=== PATIENT | female | born 1980 | race Caucasian/White ===

== ENCOUNTER 2016-11-21 09:54 | Emergency (ER) | payer OTHER ==
[~2016-11-21] VITALS: Ht 157.5 cm; Wt 63.5 kg
[2016-11-21] MEDS ORDERED: MULT1TAB18 PO (10:10)
[2016-11-21] MEDS ORDERED: PEPT262T2 PO (10:10)
[2016-11-21] MEDS ORDERED: NS 1,000 ML IV ONE ×2 (11:00→12:30)
[2016-11-21] MEDS ORDERED: KETOROLAC 30 MG/ML VIAL (J1885) IV ONE (11:00)
[2016-11-21] MEDS ORDERED: ONDANSETRON 4MG/2ML VIAL (J2405) IV ONE (11:00)
[2016-11-21 11:29] LABS: BASO % 0.2 % (0.0-1.0); EOS # 0.3 K/mm3 (0.0-0.50); EOS % 2.2 % (0.0-3.0); LARGE UNSTAINED CELL # 0.1 K/mm3 (0.0-0.4); LARGE UNSTAINED CELL % 1.1 % (0.0-4.0); LYMPH % 16.4 % (24.0-44.0); MEAN CORPUSCULAR HEMOGLOBIN 34.8 pg (27.0-33.0); MEAN CORPUSCULAR HGB CONC 36.2 g/dl (32.0-36.5); MEAN CORPUSCULAR VOLUME 96.1 fl (80.0-96.0); MONO # 0.5 K/mm3 (0.0-0.8); MONO % 4.3 % (0.0-5.0); NEUTROPHILS # 9.1 K/mm3 (1.8-7.7); NEUTROPHILS % 75.8 % (36.0-66.0); PLATELET COUNT, AUTOMATED 332 k/mm3 (150-450); RED CELL DISTRIBUTION WIDTH 11.6 % (11.5-14.5)
--- NOTE | 2016-11-21 11:45 | REP ---
Clinical: Upper abdominal pain. Technique: Perkins scale ultrasound using curved array transducer. Findings: The liver and pancreas are normal in contour, size, and echogenicity without focal hepatic or pancreatic lesions identified. The gallbladder is normal without gallstones, wall thickening or pericholecystic fluid. No biliary ductal dilatation is appreciated, and the common bile duct measures 3.5 mm mm diameter. The right kidney is normal in reniform shape without hydronephrosis and measures 10.0 x 5.1 x 4.6 cm. No ascites. Visualized portions of the abdominal aorta normal. Impression: Normal right upper quadrant and gallbladder abdominal ultrasound. Signed by Elias Holcomb MD 11/21/2016 11:37 A
[2016-11-21 11:56] LABS: ALBUMIN 4.2 GM/DL (3.2-5.2); ALBUMIN/GLOBULIN RATIO 1.17 (1.00-1.93); ALKALINE PHOSPHATASE 56 U/L (45-117); ALT/SGPT 26 U/L (12-78); AMYLASE 74 U/L (25-115); ANION GAP 7 MEQ/L (8-16); AST/SGOT 14 U/L (15-37); BILIRUBIN,TOTAL 0.6 MG/DL (0.2-1.0); BLOOD UREA NITROGEN 14 MG/DL (7-18); CARBON DIOXIDE LEVEL 24 MEQ/L (21-32); CHLORIDE LEVEL 109 MEQ/L (98-107); CREATININE FOR GFR 0.84 MG/DL (0.55-1.02); GLOMERULAR FILTRATION RATE > 60.0 (>60); GLUCOSE, FASTING 87 MG/DL (70-105); SODIUM LEVEL 140 MEQ/L (136-145); TOTAL PROTEIN 7.8 GM/DL (6.4-8.2)
[2016-11-21] MEDS ORDERED: MORPHINE 4 MG/ML 1ML SYRINGE IV ONE (12:15)
[2016-11-21] MEDS ORDERED: ISOVUE-370 76% 100ML VIAL (Q9967) As Ordered ONE (12:23)
--- NOTE | 2016-11-21 13:04 | REP ---
Clinical: Left lower quadrant pain and diarrhea. Technique: Axial contrast enhanced images from the lung bases to the pubic symphysis using oral and 100 ml Isovue 370 intravenous contrast material coronal and sagittal re-formations. Findings: Mural thickening involving the entire colon and fluid-filled small bowel is most compatible enterocolitis and should be correlated clinically. There is no bowel obstruction, free air or significant free fluid/drainable collection. Liver, spleen, pancreas, gallbladder, bilateral adrenal glands and kidneys are normal. Pelvis demonstrates normal bladder. Prominent uterus and adnexa with involuting right ovarian cysts are likely physiologic and related to menstrual cycle. No adenopathy. Vasculature is normal. Surrounding musculoskeletal structures are intact. Lung bases are clear. Visualized heart and pericardium normal. Impression: 1. Findings compatible with acute enterocolitis. No associated bowel obstruction, perforation, or drainable collection/ascites. 2. Physiologic changes to the uterus and adnexa. Signed by Elias Holcomb MD 11/21/2016 12:55 P
[2016-11-21] MEDS ORDERED: AUGM875T27 PO (13:51)
[2016-11-21] MEDS ORDERED: BENT10CA PO (13:51)
[2016-11-21] MEDS ORDERED: ZOFR4TAB3 PO (13:51)
[2016-11-21] MEDS ORDERED: PERC5TAB6 PO (13:51)
[2016-11-21 13:58] VITALS: BP 97/60
[2016-11-21] MEDS ORDERED: BACTRIM 160MG/800MG DS TAB PO ONE (14:00)
[2016-11-21] MEDS ORDERED: AUGMENTIN 875 MG TAB PO ONE (14:00)
== END 2016-11-21 14:20 | disposition home or self-care (01) ==
LOC: M ED 10:54
DX: R10.84 Generalized abdominal pain (principal); R11.2 Nausea with vomiting, unspecified; R19.7 Diarrhea, unspecified; F17.210 Nicotine dependence, cigarettes, uncomplicated
CPT/HCPCS: 74177; 76705; 80053; 81001; 81025; 82150; 83690; 85025; 87086; 96361; 96374; 96375; 99284; J1885; J2405; Q9967